=== PATIENT | female | born 1985 ===

== ENCOUNTER 2016-11-09 12:51 | Emergency (ER) | payer MEDICAID, OTHER ==
[2016-11-09 12:59] VITALS: O2SAT 100
[2016-11-09] MEDS ORDERED: Sodium Chloride 0.9% 1,000 ML IV ONE (13:15)
[2016-11-09] MEDS ORDERED: Sodium Chloride 0.9% 1,000 ML ONE (13:35)
[2016-11-09 13:51] LABS: BASO # 0.1 K/uL (0.0-0.2); BASO % 1.1 % (0.0-2.0); EOS # 0.2 K/uL (0.0-0.7); EOS % 2.2 % (0.0-4.0); HEMATOCRIT 35.5 % (34.0-47.0); LYMPH # 2.9 K/uL (1.0-4.3); LYMPH % 32.5 % (20.0-40.0); MEAN CELL VOLUME 93.8 fL (81.0-99.0); MEAN CORPUSCULAR HEMOGLOBIN 31.3 pg (27.0-31.0); MEAN CORPUSCULAR HGB CONC 33.4 g/dL (33.0-37.0); MEAN PLATELET VOLUME 9.5 fL (7.2-11.7); MONO # 0.5 K/uL (0.0-0.8); MONO % 5.3 % (0.0-10.0); NRBC % 0.1 % (0.0-2.0); WHITE BLOOD COUNT 8.9 K/uL (4.8-10.8)
[2016-11-09 14:07] LABS: CHLORIDE 101 mmol/L (98-107); POTASSIUM 3.8 mmol/L (3.6-5.2); SODIUM 136 mmol/L (132-148)
[2016-11-09 14:09] LABS: RBC URINE 5 /hpf (0-3); URINE BACTERIA RARE (<OCC); URINE BILIRUBIN NEGATIVE (NEGATIVE); URINE BLOOD NEGATIVE (NEGATIVE); URINE COLOR Yellow (YELLOW); URINE GLUCOSE (UA) NORMAL (Normal); URINE KETONE TRACE mg/dL (NEGATIVE); URINE LEUKOCYTE ESTERASE 1+ Leu/uL (Negative); URINE PROTEIN NEGATIVE (NEGATIVE); URINE UROBILINOGEN NORMAL mg/dL (0.2-1.0); WBC URINE 3 /hpf (0-5)
[2016-11-09 14:10] LABS: ALB/GLOB RATIO 1.2 (1.0-2.1); ALKALINE PHOSPHATASE 54 U/L (38-126); ALT/SGPT 11 U/L (9-52); AST/SGOT 23 U/L (14-36); BILIRUBIN,TOTAL 0.6 mg/dL (0.2-1.3); BLOOD UREA NITROGEN 11 mg/dL (7-17); CALCIUM 8.8 mg/dl (8.6-10.4); CARBON DIOXIDE 25 mmol/L (22-30); GFR AFRICAN-AMERICAN > 60; GLUCOSE,RANDOM 92 mg/dL (65-105); TOTAL PROTEIN 7.2 g/dL (6.3-8.3)
--- NOTE | 2016-11-09 14:56 | C.PDOC ---
History Of Present Illness Patient is a 31 year old female who presents to the ER with a complaint of vaginal spotting and lower abdominal pain, associated with mild nausea. Patient is [id number] and is currently with twins, US confirmed. LMP was 09/22. Denies fever, chills, chest pain, dysuria, hematuria or vomiting. Time Seen by Provider: 11/09/16 13:16 Chief Complaint (Nursing): Abdominal Pain History Per: Patient History/Exam Limitations: no limitations Onset/Duration Of Symptoms: Hrs Current Symptoms Are (Timing): Still Present Location Of Pain/Discomfort: Other (Lower abdominal) Radiation Of Pain To:: None Quality Of Discomfort: Unable To Describe Associated Symptoms: Nausea (Mild). denies: Fever, Chills, Vomiting, Chest Pain , Urinary Symptoms (Dysuria, hematuria) Exacerbating Factors: None Alleviating Factors: None Recent travel outside of the [place]: No Past Medical History Reviewed: Historical Data, Nursing Documentation, Vital Signs Vital Signs: Last Vital Signs Temp 98.6 F 11/09/16 17:02 Pulse 79 11/09/16 17:02 Resp 17 11/09/16 17:02 BP 106/47 L 11/09/16 17:02 Pulse Ox 100 11/09/16 17:02 - Medical History PMH: No Chronic Diseases Surgical History: No Surg Hx Family History: States: Unknown Family Hx - Social History Hx Alcohol Use: No Hx Substance Use: No Review Of Systems Except As Marked, All Systems Reviewed And Found Negative. Constitutional: Negative for: Fever, Chills Cardiovascular: Negative for: Chest Pain Gastrointestinal: Positive for: Nausea, Abdominal Pain. Negative for: Vomiting Genitourinary: Positive for: Vaginal Bleeding. Negative for: Dysuria, Hematuria Physical Exam - Physical Exam Appears: Non-toxic Skin: Normal Color, Warm, Dry Head: Atraumatic, Normacephalic Oral Mucosa: Moist Chest: Symmetrical, No Tenderness Cardiovascular: Rhythm Regular, No Murmur Respiratory: Normal Breath Sounds, No Rales, No Rhonchi, No Wheezing Gastrointestinal/Abdominal: Soft, Tenderness (Diffusely, lower) Neurological/Psych: Oriented x3, Normal Speech, Normal Cognition ED Course And Treatment - Laboratory Results Result Diagrams: 11/09/16 13:40 11/09/16 13:40 O2 Sat by Pulse Oximetry: 100 (Room air) Pulse Ox Interpretation: Normal Progress Note: Transvaginal US, blood work and urine culture ordered. Tylenol and IV fluids administered. Disposition - Disposition Referrals: [facility] Ar[facility], [Non-Staff] - Disposition: HOME/ ROUTINE Disposition Time: 16:20 Condition: GOOD Additional Instructions: Thank you for letting us take care of you today. Your provider was Dr. Gaines. You were treated for abdominal pain in . The emergency medical care you received today was directed at your acute symptoms. If you were prescribed any medication, please fill it and take as directed. It may take several days for your symptoms to resolve. Return to the Emergency Department if your symptoms worsen, do not improve, or if you have any other problems. Please contact your doctor or call one of the physicians/clinics you have been referred to that are listed on the Patient Visit Information form that is included in your discharge packet. Bring any paperwork you were given at discharge with you along with any medications you are taking to your follow up visit. Our treatment cannot replace ongoing medical care by a primary care provider (PCP) outside of the emergency department. Thank you for allowing the [facility] team to be part of your care today. Follow up with your ERP IMPLEMENTATION CONSULTANT in 3-4 days for re-evaluation. Instructions: Abdominal Pain in (ED) - Clinical Impression Clinical Impression: Abdominal pain affecting - Scribe Statement The provider has reviewed the documentation as recorded by the Scribhamzah Vallejo All medical record entries made by the Scribe were at my direction and personally dictated by me. I have reviewed the chart and agree that the record accurately reflects my personal performance of the history, physical exam, medical decision making, and the department course for this patient. I have also personally directed, reviewed, and agree with the discharge instructions and disposition.
--- NOTE | 2016-11-09 16:05 | US ---
PROCEDURE: OB ultrasound 11/09/2016 HISTORY: lower abdominal pain COMPARISON: Correlation made with prior pelvic ultrasound 09/30/2012 TECHNIQUE: Transabdominal/transvaginal sonographic evaluation of the pelvis performed. FINDINGS: Findings: The uterus is anteverted measuring approximately 9.4 x 5.4 x 6.2 cm. The cervix is closed measuring approximately 3.9 cm. Small cervical nabothian cyst measuring 1.3 cm noted. Single living intrauterine gestation with measurements as follows: Gestational sac: MSD = 1.36 cm = 5 weeks 4 days Yolk sac: 0.17 cm pole: CRL = 0.29 cm = 5 weeks 6 days Heart motion: 147 BPM Average ultrasound age: 5 weeks 5 days +/-0 weeks 3 days Right ovary measures approximately 3.0 x 2.1 x 2.5 cm. Left ovary measures approximately 2.3 x 1.5 x 1.7 cm. Both ovaries exhibit arterial flow. There is a small amount of free fluid present. IMPRESSION: Single living atrium gestation at approximately 5 weeks 5 days +/-0 weeks 3 days. Heart rate detected. Small amount of free fluid present. Cervical nabothian cyst as above.
[2016-11-09 17:03] VITALS: BP 106/47; PULSE 79; RESP 17; TEMP 98.6
== END 2016-11-09 17:32 | disposition home or self-care (01) ==
LOC: C.ER 12:51
DX: O26.891 Other specified pregnancy related conditions, first trimester (principal); R10.30 Lower abdominal pain, unspecified; Z3A.01 Less than 8 weeks gestation of pregnancy
CPT/HCPCS: 76805; 76817; 80053; 81001; 83690; 84702; 85025; 86850; 86900; 87086; 94770; 99284; J7040